=== PATIENT | female | born 1965 | race Caucasian/White ===

== ENCOUNTER 2017-05-19 11:44 | Day surgery (SDC) | payer BC ==
[~2017-05-19 11:44] MED LIST: RINGER'S SOLUTION,LACTATED 1,000 ML IV PRN
[2017-05-19] MEDS ORDERED: RINGER'S SOLUTION,LACTATED 1,000 ML IV ONE (12:21)
[2017-05-19] MEDS ORDERED: BUPIVACAINE HCL/EPINEPHRINE 50 ML VIAL IJ ONE (13:05)
[2017-05-19] MEDS ORDERED: RINGER'S SOLUTION,LACTATED 1,000 ML IV PRN (13:45)
[2017-05-19] MEDS ORDERED: oxyCODONE HCL/ACETAMINOPHEN 1 TAB TABLET PO PRN (13:46)
[2017-05-19] MEDS ORDERED: IBUPROFEN 800 MG TABLET PO PRN (13:47)
[2017-05-19 14:40] VITALS: BP 102/78
--- NOTE | 2017-05-19 15:05 | OR ---
Operative Report - Dictated Report Narrative: Operative report: 05/19/17 Preoperative diagnosis: endometrial polyp Postoperative diagnosis: endocervical polyp Procedure: Hysteroscopy, D&C, polypectomy Surgeon: Marian Small D.O. [employer] Agent: OR staff Anesthesia: Local and sedation IV fluids: 500 Milliliters EBL: min Milliliters Urine output: Not applicable Findings: endocervical polyp, thickened lining Drains: None Pathology: Endometrial curettings, endocervical polyp Complications: None Condition: Stable The patient was taken to the operating room. Anesthesia was found to be adequate. The patient was prepped and draped in the normal sterile fashion in the dorsal lithotomy position. A sterile speculum was then inserted into the vagina. The anterior lip of the cervix was then grasped with a single-tooth tenaculum. Local anesthetic was then injected in the cervix. The hysteroscope was then inserted into the cervix. Hydrodistention was then used to enter into the uterine cavity. The polyp was found to originate from within the cervix. The cavity was then surveyed and a thickened endometrial lining. The hysteroscope was then removed. The polyp was then removed with a polyp forceps. The cervix was then sequentially dilated. A sharp curettage was then performed until the cry of the uterus was noted. Minimal bleeding was then noted from the cervix. Hysteroscopy was then performed and adequate curettage was noted throughout the entire cavity. The hysteroscope was then removed. The tenaculum was then removed. Hemostasis was noted. The speculum was then removed. All sponge lap and needle counts were correct 2. The patient was taken to the recovery room in stable condition.
== END 2017-05-19 11:45 | disposition home or self-care (01) ==
LOC: AMB 11:44
PROVIDERS: ATTEND Obstetrics & Gynecology Gynecologic Oncology
PROC: 0UJD8ZZ Inspection of Uterus and Cervix, Via Natural or Artificial Opening Endoscopic (ICD-10-PCS; 2017-05-19)
PROC: 0UDB7ZX Extraction of Endometrium, Via Natural or Artificial Opening, Diagnostic (ICD-10-PCS; principal; 2017-05-19 13:50)
DX: N84.1 Polyp of cervix uteri (principal); Z68.35 Body mass index [BMI] 35.0-35.9, adult